=== PATIENT | female | born 1975 | race Caucasian/White ===

== ENCOUNTER → 2016-12-03 | Outpatient (CLI) | payer SELFPAY ==
[~2016-12-03] MED LIST: FLX20C PO; LEVO50TA6 PO
--- NOTE | 2016-12-03 17:31 | Diagnostic Imaging Report ---
PROCEDURE: CT head without contrast. TECHNIQUE: Multiple contiguous axial images were obtained through the brain without the use of intravenous contrast. INDICATION: Dizziness with visual changes. Compared 06/25/2015. FINDINGS: There is no intracranial hemorrhage, hydrocephalus, edema, mass or mass effect. There are no abnormal extra-axial fluid collections. No findings of edema. The orbits, sinuses and calvarium were within normal limits. IMPRESSION: Stable normal CT head. Dictated by: Dictated on workstation # [id number]
== END ==
LOC: RAD 16:43
PROVIDERS: ATTEND Family Medicine
DX: R42 Dizziness and giddiness (principal); H53.9 Unspecified visual disturbance
CPT/HCPCS: 70450

== ENCOUNTER → 2016-12-03 | Outpatient (REF) | payer SELFPAY ==
[2016-12-03 17:08] LABS: ALBUMIN 5.1 g/dL (3.4-5.0); ALKALINE PHOSPHATASE 81 U/L (38-126); BUN/CREATININE RATIO 19 (10-20); CALCULATED IONIZED CALCIUM 3.6 mg/dL (3.8-4.6); TOTAL PROTEIN 9.1 g/dL (6.4-8.5)
[2016-12-03 17:09] LABS: ANION GAP 14.8 MEQ/L (3-15)
[2016-12-03 17:10] LABS: BASOPHILS % (AUTO) 0 % (0-2); EOSINOPHILS % (AUTO) 0 % (0-4); LYMPHOCYTES # (AUTO) 2.4 X10^3; MEAN CORPUSCULAR HGB CONC 35.3 g/dL (31.0-37.0); MEAN CORPUSCULAR VOLUME 90 FL (80-100); MEAN PLATELET VOLUME 9.2 FL (6.0-9.5); MONOCYTES # (AUTO) 0.8 X10^3; MONOCYTES % (AUTO) 7 % (3-11); NEUTROPHILS # (AUTO) 8.3 X10^3; NEUTROPHILS % (AUTO) 72 % (51-67); PLATELET COUNT 344 10^3uL (150-450); WHITE BLOOD COUNT 11.62 10^3uL (4.0-11.0)
[2016-12-03 17:11] LABS: MEAN CORPUSCULAR HEMOGLOBIN 31.8 PG (26.0-34.0)
== END ==
LOC: LAB 16:47
PROVIDERS: ATTEND Family Medicine
DX: R61 Generalized hyperhidrosis (principal); M79.601 Pain in right arm; I10 Essential (primary) hypertension; R11.0 Nausea; R42 Dizziness and giddiness
CPT/HCPCS: 80053; 82553; 84443; 84484; 85025